=== PATIENT | male | born 1975 | race Caucasian/White ===

== ENCOUNTER 2016-07-30 21:35 | Emergency (ER) | payer OTHER ==
[~2016-07-30] VITALS: Ht 180.3 cm; Wt 70.8 kg
[~2016-07-30 21:35] MED LIST: BUPR8MIS SL; CLON0.5T3 PO; IBUP600T44 PO; [UNRECOGNIZED DRUG - OTHER]
[2016-07-30 21:48] VITALS: TEMP 36.8; Ht 180.3 cm; Wt 70.8 kg
[2016-07-30] MEDS ORDERED: BUSP15TA70 PO (22:16)
[2016-07-31] MEDS ORDERED: IBUPROFEN 600 MG TAB PO STA (00:12)
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
[2016-07-31] MEDS ORDERED: MoRPHine SULFATE 4 MG/ML 1 ML CARP\\VIAL IV STA ×2 (00:40→02:13)
[2016-07-31] MEDS ORDERED: ONDANSETRON INJ 2 MG/ML 2 ML VIAL IV STA (00:40)
[2016-07-31 01:00] LABS: ISTAT CREATININE 0.7 mg/dl (0.6-1.3); ISTAT IONIZED CALCIUM 1.19 mmol/l (1.12-1.32)
[2016-07-31] MEDS ORDERED: OPTIRAY 320 IV PRN (01:00)
[2016-07-31 02:29] VITALS: BP 124/98; PULSE 80; O2SAT 100
--- NOTE | 2016-07-31 06:04 | DIAGNOSTIC IMAGING REPORT ---
LEFT RIBS UNILATERAL WITH PA CHEST CLINICAL HISTORY: Left rib pain pain COMPARISON STUDY: None FINDINGS: Negative left ribs. Lungs are clear. No evidence pneumothorax. IMPRESSION: Negative study Electronically signed by: Edson Marquez M.D. 07/31/2016 6:02 AM Dictated Date/Time: 07/31/2016 6:00 AM
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
[2016-08-01] MEDS ORDERED: BUSP-8 PO (10:57)
[2016-08-01] MEDS ORDERED: CLON1TAB3 PO ×2 (10:57→11:22)
[2016-08-01] MEDS ORDERED: ZOLP10TA PO (10:58)
[2016-08-01] MEDS ORDERED: ACET-1256 PO (10:59)
[2016-08-01] MEDS ORDERED: IBUP-1050 PO (10:59)
[2016-08-01] MEDS ORDERED: BUSP15TA70 PO (11:22)
== END 2016-07-31 02:25 | disposition home or self-care (01) ==
LOC: C.EDB 21:37 → C.EDD 07-31 02:25
DX: S20.20XA Contusion of thorax, unspecified, initial encounter (principal); T14.8 Other injury of unspecified body region; Y04.0XXA Assault by unarmed brawl or fight, initial encounter

== ENCOUNTER 2016-08-01 10:14 | Emergency (ER) | payer OTHER ==
[~2016-08-01] VITALS: Ht 180.3 cm; Wt 71.9 kg
[~2016-08-01 10:14] MED LIST changes: +BUSP15TA70 PO; -IBUP600T44 PO; -[UNRECOGNIZED DRUG - OTHER]
[2016-08-01 10:26] VITALS: TEMP 37.1; Ht 180.3 cm; Wt 71.9 kg
[2016-08-01] MEDS ORDERED: CLONAZEPAM 1 MG TAB PO STA (10:47)
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
[2016-08-01] MEDS ORDERED: CLON1TAB3 PO ×2 (10:57→11:22)
[2016-08-01] MEDS ORDERED: BUSP-8 PO (10:57)
[2016-08-01] MEDS ORDERED: ZOLP10TA PO (10:58)
[2016-08-01] MEDS ORDERED: IBUP-1050 PO (10:59)
[2016-08-01] MEDS ORDERED: ACET-1256 PO (10:59)
[2016-08-01] MEDS ORDERED: CLONAZEPAM 0.5 MG TAB PO ONE (11:00)
[2016-08-01] MEDS ORDERED: BUSP15TA70 PO (11:22)
[2016-08-01 11:31] VITALS: BP 144/89; PULSE 88; O2SAT 99
== END 2016-08-01 11:30 | disposition home or self-care (01) ==
LOC: C.EDB 10:15 → C.EDD 11:30
DX: Z76.0 Encounter for issue of repeat prescription (principal); F41.9 Anxiety disorder, unspecified; Z79.899 Other long term (current) drug therapy

== ENCOUNTER 2021-06-16 16:58 | Inpatient (IN) ==
[2021-06-16] MEDS ORDERED: SODIUM CHLORIDE 0.9% 1000ML 1,000 ML IV ONE (17:42)
[2021-06-16] MEDS ORDERED: KETOROLAC TROMETHAMINE 15 MG/ML VIAL IV STA (17:42)
[2021-06-16] MEDS ORDERED: PROMETHAZINE 6.25 MG/50.25 ML BAG IV STA (17:42)
[2021-06-16] MEDS ORDERED: ONDANSETRON INJ 2 MG/ML 2 ML VIAL IV STA (17:42)
[2021-06-16] MEDS ORDERED: MoRPHine SULFATE 10 MG/ML CARP/VIAL IV STA (17:42)
--- NOTE | 2021-06-16 17:45 | Emergency Department Note ---
Impression & Plan Epigastric abdominal pain, Vomiting, Acute pancreatitis ED Provider Note NAME: CLAU JAMES AGE: 46 SEX: M : 1975 ARRIVES VIA: Walk-In INFORMANT: [Patient] ED PROVIDER(S): [Holden Frideman MD] CHIEF COMPLAINT: Abdominal pain HISTORY OF PRESENT ILLNESS: The patient is a 46-year-old male presents to the ER with severe upper abdominal pain that began last evening and then worsened today after eating breakfast. He has been vomiting. The pain is severe and radiates to the back. It seems bilateral. There has been no fever, no cough or congestion or shortness of breath. He has had no urinary complaints. No issues with diarrhea although, he has had some trouble with constipation as of late. The patient has never had pain like this before, he still has his gallbladder and appendix. REVIEW OF SYSTEMS: See HPI for pertinent positives and negatives. A total of ten systems were reviewed and were otherwise negative. PMHx/PSHx: See Below SOCIAL HISTORY: See Below. PHYSICAL EXAM: GENERAL: Patient is in moderate distress from pain. HEENT: No acute trauma, normocephalic atraumatic, mucous membranes moist, no nasal congestion, no scleral icterus. NECK: No stridor, no adenopathy, no meningismus, trachea is midline. LUNGS: Clear to auscultation bilaterally, no wheeze, no rhonchi, breath sounds equal. HEART: Without murmurs gallops or rubs, regular rate and rhythm. ABDOMEN: Soft, moderately tender in the upper abdomen bilaterally and somewhat in the left lower quadrant, bowel sounds positive but quite hypoactive, no hernias, no peritonitis. EXTREMITIES: No cyanosis or edema, full range of motion of all the joints without pain or difficulty, no signs for acute trauma. NEUROLOGIC: Oriented x 3, no acute motor or sensory deficits, no focal weakness. SKIN: No rash, no jaundice, no diaphoresis. DIFFERENTIAL DIAGNOSIS: Appendicitis, testicular torsion, diverticulitis, UTI, obstruction, mesenteric ischemia, aortic pathology, inflammatory bowel disease, renal colic, cardiac ischemia, PUD, pancreatitis, biliary pathology, hernia, volvulus, constipation, as well as other pathologies. EMERGENCY DEPARTMENT COURSE/PROCEDURES: ECG: Indication was abdominal pain. The ECG shows a normal sinus rhythm with some sinus arrhythmia. The rate is 74. There is no ST elevation, no PVCs. The QTc is 428. Continuous Cardiac Monitoring: An order was placed for continuous cardiac monitoring. The monitor shows a rate of 87 with normal sinus rhythm. MEDICAL DECISION MAKING: There is a moderate leukocytosis at 18,000, this could be consistent with infection or just his pain. There is a elevation to the hemoglobin at 18.3. There is a normal platelet count. No coagulopathy. No significant electrolyte abnormality or renal failure. There were a few subtle liver enzyme elevations. Lipase was quite elevated consistent with pancreatitis. ECG shows a normal sinus rhythm, no obvious ischemia. Cardiac enzyme testing x1 is not not consistent with acute cardiac injury. Covid testing is negative. Chest film does not show CHF, free air or mediastinal widening. Abdominal and pelvis CT is consistent with acute pancreatitis. On exam, the patient was tender in the upper abdomen. He appears uncomfortable The patient received IV saline, 1 L. He was given IV morphine, IV Toradol and IV Zofran, he received IV Phenergan. Additional IV morphine was ordered. The patient has acute pancreatitis. This explains his pain. The patient does admit to drinking alcohol fairly regularly and sometimes heavily. The alcohol is likely the cause of his pancreatitis. I spoke with the patient and case management. The on-call hospitalist was consulted. Past Med/Surg History Medical History Ankylosing spondylitis Anxiety Depression Social History Smoking Status: Never smoker Feels Safe at Home: Yes Allergies Allergies Allergy/AdvReac Type Severity Reaction Status Date / Time trazodone AdvReac Unknown prolonged Verified 06/16/21 17:32 erection Home Meds Home Medications Medication Instructions Recorded Confirmed buprenorphine HCl 8 mg sublingual 8 mg SUBLINGUAL BID 08/07/20 06/16/21 tablet clonazepam 0.5 mg tablet 0.5 mg PO HS 08/07/20 06/16/21 duloxetine 30 mg capsule,delayed 30 mg PO QAM 08/07/20 06/16/21 release mirtazapine 30 mg tablet 15 mg PO HS 06/16/21 06/16/21 testosterone cypionate 200 mg/mL 300 mg IM .EVERY 7 DAYS 06/16/21 06/16/21 intramuscular oil Results & Data (ED) Vital Signs Vital Signs - 24 hr 06/16/21 17:06 06/16/21 17:59 Temperature 36.9 C Temperature Source Temporal Artery Scan Pulse Rate 87 Pulse Rhythm Regular Pulse Strength Normal Respiratory Rate 18 Respiratory Effort / Characteristics Non-Labored Spontaneous Non-Labored Respiratory Depth Normal Shallow Respiratory Pattern Regular Regular Blood Pressure 152/100 H Blood Pressure Mean 117 Pulse Oximetry 99 Oxygen Delivery Method Room Air Room Air Sepsis Recent Fever Within 48 Hours No Sepsis New/Unexplained Change in Mental Status No Sepsis Action Taken by Nursing No Action Required Home Medications Current Medication List: was personally reviewed by me Laboratory Data Attestation: I reviewed the patient's lab results. Result diagrams: 06/16/21 17:45 06/16/21 17:45 Lab Results 06/16/21 06/16/21 06/16/21 Range/Units 17:45 17:45 17:45 WBC 18.91 H (4.8-10.8) K/uL RBC 5.68 (4.7-6.1) M/uL Hgb 18.3 H (14.0-18.0) g/dL Hct 50.4 (42-52) % MCV 88.7 (80-100) fL MCH 32.2 (25-34) pg MCHC 36.3 H (32-36) g/dL RDW Std Deviation 43.2 (36.4-46.3) fL RDW Coeff of Mark 13.2 (11.5-14.5) % Plt Count 188 (130-400) K/uL MPV 9.9 (7.4-10.4) fL Immature Gran % (Auto) 0.3 % Neut % (Auto) 89.2 % Lymph % (Auto) 4.4 % [place] % (Auto) 5.8 % Eos % (Auto) 0.2 % Baso % (Auto) 0.1 % Neut # (Auto) 16.87 H (1.4-6.5) K/uL Lymph # (Auto) 0.83 L (1.2-3.4) K/uL [place] # (Auto) 1.09 H (0.11-0.59) K/uL Eos # (Auto) 0.04 (0-0.5) K/uL Baso # (Auto) 0.02 (0-0.2) K/uL Immature Gran # (Auto) 0.06 H (0.00-0.02) K/uL PT 10.6 (9.0-12.0) Seconds INR 1.0 (0.9-1.1) APTT 25.8 (21.0-31.0) Seconds PTT Ratio 1.0 Sodium 137 (136-145) mmol/L Potassium 3.8 (3.5-5.1) mmol/L Chloride 100 (98-107) mmol/L Carbon Dioxide 26 (21-32) mmol/L Anion Gap 11 (3-11) BUN 13 (6-23) mg/dl Creatinine 1.06 (0.6-1.4) mg/dl Est Cr Clr Drug Dosing Not Reportable Est GFR ( Amer) 97.8 ml/min Est GFR (Non-Af Amer) 84.3 ml/min BUN/Creatinine Ratio 12.3 (10-20) Glucose 109 H (70-99(Fasting)) mg/dl Calcium 9.3 (8.5-10.1) mg/dl Total Bilirubin 1.6 H (0.2-1.0) mg/dl AST 40 H (13-39) U/L ALT 25 (7-52) U/L Alkaline Phosphatase 69 (34-104) U/L Troponin I < 0.03 (0-0.04) ng/ml Total Protein 7.5 (6.0-8.3) gm/dl Albumin 4.6 (3.4-5.0) gm/dl Globulin 2.9 (2.5-4.0) gm/dl Albumin/Globulin Ratio 1.6 (0.9-2) Lipase 1621 H (11-82) U/L SARS-CoV-2, RNA, NAAT (NEGATIVE) 06/16/21 Range/Units 18:14 WBC (4.8-10.8) K/uL RBC (4.7-6.1) M/uL Hgb (14.0-18.0) g/dL Hct (42-52) % MCV (80-100) fL MCH (25-34) pg MCHC (32-36) g/dL RDW Std Deviation (36.4-46.3) fL RDW Coeff of Mark (11.5-14.5) % Plt Count (130-400) K/uL MPV (7.4-10.4) fL Immature Gran % (Auto) % Neut % (Auto) % Lymph % (Auto) % [place] % (Auto) % Eos % (Auto) % Baso % (Auto) % Neut # (Auto) (1.4-6.5) K/uL Lymph # (Auto) (1.2-3.4) K/uL [place] # (Auto) (0.11-0.59) K/uL Eos # (Auto) (0-0.5) K/uL Baso # (Auto) (0-0.2) K/uL Immature Gran # (Auto) (0.00-0.02) K/uL PT (9.0-12.0) Seconds INR (0.9-1.1) APTT (21.0-31.0) Seconds PTT Ratio Sodium (136-145) mmol/L Potassium (3.5-5.1) mmol/L Chloride (98-107) mmol/L Carbon Dioxide (21-32) mmol/L Anion Gap (3-11) BUN (6-23) mg/dl Creatinine (0.6-1.4) mg/dl Est Cr Clr Drug Dosing Est GFR ( Amer) ml/min Est GFR (Non-Af Amer) ml/min BUN/Creatinine Ratio (10-20) Glucose (70-99(Fasting)) mg/dl Calcium (8.5-10.1) mg/dl Total Bilirubin (0.2-1.0) mg/dl AST (13-39) U/L ALT (7-52) U/L Alkaline Phosphatase (34-104) U/L Troponin I (0-0.04) ng/ml Total Protein (6.0-8.3) gm/dl Albumin (3.4-5.0) gm/dl Globulin (2.5-4.0) gm/dl Albumin/Globulin Ratio (0.9-2) Lipase (11-82) U/L SARS-CoV-2, RNA, NAAT NEGATIVE (NEGATIVE) Administered Medications Discontinued Medications Promethazine HCl (Phenergan) 6.25 mg in 50.25 mls @ 201 mls/hr IV NOW STA Stop: 06/16/21 17:56 Last Infusion: 06/16/21 18:51 Dose: 0 mls/hr Documented by: [id number] Admin: 06/16/21 18:05 Dose: 201 mls/hr Documented by: [id number] Sodium Chloride (Nss 1000ml) 1,000 mls @ 999 mls/hr IV .Q1H1M ONE Stop: 06/16/21 18:42 Last Infusion: 06/16/21 19:09 Dose: 0 mls/hr Documented by: [id number] Admin: 06/16/21 18:05 Dose: 999 mls/hr Documented by: [id number] Ioversol (Optiray 320 100ml) 95 ml IV ONCE ONE Stop: 06/16/21 18:28 Last Admin: 06/16/21 18:28 Dose: 95 ml Documented by: [id number] Ketorolac Tromethamine (Ketorolac Tromethamine 15 Mg/Ml Vial) 15 mg IV NOW STA Stop: 06/16/21 17:43 Last Admin: 06/16/21 18:05 Dose: 15 mg Documented by: [id number] Morphine Sulfate (Morphine Sulfate 10 Mg/Ml Carp/Vial) 6 mg IV NOW STA Stop: 06/16/21 17:43 Last Admin: 06/16/21 18:04 Dose: 6 mg Documented by: [id number] Ondansetron HCl (Ondansetron Inj 2 Mg/Ml 2 Ml Vial) 4 mg IV NOW STA Stop: 06/16/21 17:43 Last Admin: 06/16/21 18:05 Dose: 4 mg Documented by: [id number] Imaging Data Radiologist's Impression: Chest X-Ray 06/16/21 17:13 SINGLE VIEW CHEST CLINICAL HISTORY: Atypical chest pain. FINDINGS: 2 AP, portable, severe chest radiographs are compared to study dated 07/30/2016 and correlated with chest CT dated 07/31/2016. The examination is degraded by portable technique and patient rotation. The cardiomediastinal silhouette is unremarkable. The lungs and pleural spaces are clear. No pneumothorax is seen. The bony thorax is grossly intact. IMPRESSION: No active disease in the chest. ACT 112: Negative or not required by law. Electronically signed by: Holden Stein M.D. 06/16/2021 6:22 PM Abdomen/Pelvis CT 06/16/21 17:42 CT SCAN OF THE ABDOMEN AND PELVIS WITH IV CONTRAST CLINICAL HISTORY: Vomiting. Upper abdominal pain. COMPARISON STUDY: Abdominal CT dated 09/07/2009. TECHNIQUE: Following the IV administration of 95 cc of Optiray 320, CT scan of the abdomen and pelvis is performed from the lung bases to the proximal femora. Images are reviewed in the axial, sagittal, and coronal planes. IV contrast was administered without complication. A dose lowering technique was utilized adhering to the principles of ALARA. CT DOSE: 309.44 mGy.cm FINDINGS: Lung bases: The heart is normal in size and without pericardial effusion. The lung bases are clear. Liver: The contrast-enhanced liver is enlarged, measuring 20.7 cm in length. The liver is otherwise normal in contour and attenuation. There is no intrahepatic biliary ductal dilatation. The hepatic veins and portal veins are patent. Gallbladder: Unremarkable. Spleen: Normal in size and attenuation. Pancreas: Pancreas is enlarged and edematous with peripancreatic inflammation and fluid. The appearance is consistent with acute pancreatitis. The duct is normal in caliber. The gland enhances throughout. No organized peripancreatic fluid collection is identified. The splenic vein is patent. Adrenal glands: Unremarkable. Kidneys: The contrast enhanced kidneys are normal in size and without hydronephrosis. The kidneys enhance symmetrically. Abdominal vasculature: The abdominal aorta is normal in course and caliber. Bowel: There is moderate colonic fecal retention. No bowel obstruction is seen. The appendix is well-visualized and normal. Wall thickening and hyperemia of the duodenum is likely related to adjacent pancreatitis. Peritoneum: There is trace perihepatic ascites, as well as trace free fluid in the pelvis. No intraperitoneal free air is identified. There is a fat-containing umbilical hernia. Lymphadenopathy: None. Pelvic viscera: The bladder, prostate, and seminal vesicles are normal as visualized. Skeletal structures: No lytic or blastic lesions are seen. IMPRESSION: 1. Findings are consistent with acute pancreatitis. Correlate with clinical findings and serum amylase/lipase levels. 2. The gland enhances throughout and there is no organized peripancreatic fluid collection. 3. Hepatomegaly. 4. Small volume abdominopelvic ascites. 5. Wall thickening and edema of the duodenum is likely related to adjacent pancreatitis. 6. Additional findings as above. ACT 112: Negative or not required by law. Electronically signed by: Holden Stein M.D. 06/16/2021 7:11 PM Discharge Plan Visit Data Chief Complaint: Shortness of Breath/Dyspnea Stated Complaint: SOB, CHEST PAIN, ABDOM PAIN ED Provider: Holden Friedman Discharge Problem: Epigastric abdominal pain, Vomiting, Acute pancreatitis Patient Disposition: Admitted As Inpatient Condition: Fair Forms Stand Alone Forms: [facility] Prescriptions Prescriptions: No Action mirtazapine 30 mg tablet 15 mg PO HS RF: 0 testosterone cypionate 200 mg/mL oil 300 mg IM .EVERY 7 DAYS RF: 0 clonazepam 0.5 mg tablet 0.5 mg PO HS RF: 0 buprenorphine HCl 8 mg tablet, sublingual 8 mg SUBLINGUAL BID RF: 0 duloxetine 30 mg capsule,delayed release(DR/EC) 30 mg PO QAM RF: 0 Referrals Referrals: Alberto Lizama MD [Primary Care Provider] -
[2021-06-16 17:54] LABS: Basophils # (auto) 0.02 K/uL (0-0.2); Basophils % (auto) 0.1 %; Eosinophils # (auto) 0.04 K/uL (0-0.5); Eosinophils % (auto) 0.2 %; Hematocrit (blood only) 50.4 % (42-52); Hemoglobin 18.3 g/dL (14.0-18.0); Immature Granulocytes # (auto) 0.06 K/uL (0.00-0.02); Immature Granulocytes % (auto) 0.3 %; Lymphocytes # (auto) 0.83 K/uL (1.2-3.4); Lymphocytes % (auto) 4.4 %; Mean Corpuscular Hemoglobin 32.2 pg (25-34); Mean Corpuscular Hgb Conc 36.3 g/dL (32-36); Mean Corpuscular Volume 88.7 fL (80-100); Mean Platelet Volume 9.9 fL (7.4-10.4); Monocytes # (auto) 1.09 K/uL (0.11-0.59); Monocytes % (auto) 5.8 %; Neutrophils # (auto) 16.87 K/uL (1.4-6.5); Neutrophils % (auto) 89.2 %; Platelet Count 188 K/uL (130-400); RDW Coefficient of Variation 13.2 % (11.5-14.5); RDW Standard Deviation 43.2 fL (36.4-46.3); Red Blood Count 5.68 M/uL (4.7-6.1); White Blood Count 18.91 K/uL (4.8-10.8)
[2021-06-16 18:05] LABS: Partial Thromboplastin Time 25.8 Seconds (21.0-31.0); Prothrombin Time 10.6 Seconds (9.0-12.0)
[2021-06-16 18:13] LABS: Troponin I < 0.03 ng/ml (0-0.04)
[2021-06-16 18:17] LABS: Anion Gap 11 (3-11); BUN Creatinine Ratio 12.3 (10-20); Blood Urea Nitrogen 13 mg/dl (6-23); Calcium 9.3 mg/dl (8.5-10.1); Carbon Dioxide 26 mmol/L (21-32); Chloride 100 mmol/L (98-107); Est GFR (African American) 97.8 ml/min; Est GFR (Non-African American) 84.3 ml/min; Glucose 109 mg/dl (70-99(Fasting)); Potassium 3.8 mmol/L (3.5-5.1); Sodium 137 mmol/L (136-145)
--- NOTE | 2021-06-16 18:24 | XRay Report ---
SINGLE VIEW CHEST CLINICAL HISTORY: Atypical chest pain. FINDINGS: 2 AP, portable, severe chest radiographs are compared to study dated 07/30/2016 and correlat ed with chest CT dated 07/31/2016. The examination is degraded by portable technique and patient rotat ion. The cardiomediastinal silhouette is unremarkable. The lungs and pleural spaces are clear. No p neumothorax is seen. The bony thorax is grossly intact. IMPRESSION: No active disease in the chest. ACT 112: Negative or not required by law. Electronically signed by: Holden Stein M.D. 06/16/2021 6:22 PM
[2021-06-16] MEDS ORDERED: OPTIRAY 320 100ml IV ONE (18:27)
[2021-06-16 19:00] LABS: Alanine Aminotransferase 25 U/L (7-52); Albumin Globulin Ratio 1.6 (0.9-2); Albumin Level 4.6 gm/dl (3.4-5.0); Alkaline Phosphatase 69 U/L (34-104); Aspartate Aminotransferase 40 U/L (13-39); Bilirubin,Total 1.6 mg/dl (0.2-1.0); Globulin 2.9 gm/dl (2.5-4.0); Total Protein 7.5 gm/dl (6.0-8.3)
--- NOTE | 2021-06-16 19:13 | CT Scan Report ---
CT SCAN OF THE ABDOMEN AND PELVIS WITH IV CONTRAST CLINICAL HISTORY: Vomiting. Upper abdominal pain. COMPARISON STUDY: Abdominal CT dated 09/07/2009. TECHNIQUE: Following the IV administration of 95 cc of Optiray 320, CT scan of the abdomen and pelvi s is performed from the lung bases to the proximal femora. Images are reviewed in the axial, sagittal , and coronal planes. IV contrast was administered without complication. A dose lowering technique wa s utilized adhering to the principles of ALARA. CT DOSE: 309.44 mGy.cm FINDINGS: Lung bases: The heart is normal in size and without pericardial effusion. The lung bases are clear. Liver: The contrast-enhanced liver is enlarged, measuring 20.7 cm in length. The liver is otherwise n ormal in contour and attenuation. There is no intrahepatic biliary ductal dilatation. The hepatic vei ns and portal veins are patent. Gallbladder: Unremarkable. Spleen: Normal in size and attenuation. Pancreas: Pancreas is enlarged and edematous with peripancreatic inflammation and fluid. The appearan ce is consistent with acute pancreatitis. The duct is normal in caliber. The gland enhances throughou t. No organized peripancreatic fluid collection is identified. The splenic vein is patent. Adrenal glands: Unremarkable. Kidneys: The contrast enhanced kidneys are normal in size and without hydronephrosis. The kidneys enh ance symmetrically. Abdominal vasculature: The abdominal aorta is normal in course and caliber. Bowel: There is moderate colonic fecal retention. No bowel obstruction is seen. The appendix is well -visualized and normal. Wall thickening and hyperemia of the duodenum is likely related to adjacent pancreatitis. Peritoneum: There is trace perihepatic ascites, as well as trace free fluid in the pelvis. No intrape ritoneal free air is identified. There is a fat-containing umbilical hernia. Lymphadenopathy: None. Pelvic viscera: The bladder, prostate, and seminal vesicles are normal as visualized. Skeletal structures: No lytic or blastic lesions are seen. IMPRESSION: 1. Findings are consistent with acute pancreatitis. Correlate with clinical findings and serum amylas e/lipase levels. 2. The gland enhances throughout and there is no organized peripancreatic fluid collection. 3. Hepatomegaly. 4. Small volume abdominopelvic ascites. 5. Wall thickening and edema of the duodenum is likely related to adjacent pancreatitis. 6. Additional findings as above. ACT 112: Negative or not required by law. Electronically signed by: Holden Stein M.D. 06/16/2021 7:11 PM
[2021-06-16] MEDS: MoRPHine SULFATE 4 MG/ML 1 ML CARP\\VIAL IV PRN ×3 (20:00→22:45)
[2021-06-16] MEDS ORDERED: MULTI-VITAMIN INFUSION 10 ML, THIAMINE HCL 100 MG, FOLIC ACID 1 MG in SODIUM CHLORIDE 0... IV ONE (20:58)
[2021-06-16] MEDS ORDERED: oxyCODONE HCL IR 5 MG TAB (IMMEDIATE RELEASE) PO PRN (20:58)
--- NOTE | 2021-06-16 22:57 | History & Physical Report ---
Date of Service June 16, 2021 Assessment & Plan (1) Acute pancreatitis: Plan: Recurrent alcoholic pancreatitis anxiety/mood disorder, stable hx HLA-B27 spondyloarthropathy as per records/chronic pain on Suboxone GMF Bowel rest, analgesia, IVF GI consult Re: Pancreatitis AWSS, DT precautions DVT prophylaxis. Lovenox subcu Full code Text document was generated using [employer] voice recognition software. It may contain grammatical or spelling errors. Kindly contact undersigned for clarification of any documentation item in question. History of Present Illness Chief Complaint: Abdominal pain Primary Care Provider: Alberto Lizama MD History obtained from patient and records. Medical history significant for history alcoholic pancreatitis as per patient, GERD, anxiety/mood disorder, hx HLA-B27 spondyloarthropathy as per records, chronic pain on Suboxone. Last night, patient noted sharp upper abdominal pain after consuming a pizza. Pain radiating to the back causing him to be short of breath. No fever, no chills. Pain reminiscent of episode of alcoholic pancreatitis decades ago. Patient denies inordinate consumption of alcohol. Patient consulted ER for evaluation. Medical History as above Surgical History : Hernia repair, shoulder surgeries Family History : Breast cancer, heart disease, melanoma, rheumatoid arthritis Personal/Social history : Non-smoker, drinking can be heavy from time to time as per patient, paint work Allergies Allergy/AdvReac Type Severity Reaction Status Date / Time trazodone AdvReac Unknown prolonged Verified 06/16/21 17:32 erection Home Medications Medication Instructions Recorded Confirmed Type buprenorphine HCl 8 mg sublingual 8 mg SUBLINGUAL BID 08/07/20 06/16/21 History tablet clonazepam 0.5 mg tablet 0.5 mg PO HS 08/07/20 06/16/21 History duloxetine 30 mg capsule,delayed 30 mg PO QAM 08/07/20 06/16/21 History release mirtazapine 30 mg tablet 15 mg PO HS 06/16/21 06/16/21 History testosterone cypionate 200 mg/mL 300 mg IM .EVERY 7 DAYS 06/16/21 06/16/21 History intramuscular oil Past Med/Surg History Medical History Ankylosing spondylitis Anxiety Depression Social History Smoking Status: Never smoker Hx Alcohol Use: Yes Alcohol type: beer Hx Substance Use: No Preferred Language: Lao Communication Ability: Effective Railway Equipment Operator Required: No Beliefs That Will Affect Care: None Current Living Situation Comment: lives with daughter and dog Other Information That Helps Us Care for You: No Feels Safe at Home: Yes Safety Concerns: Feels Safe At This Time Assistive Devices: None Review of Systems Review of Systems: As per HPI, all 10 systems reviewed, all other ROS negative Physical Exam Physical Exam: GENERAL: uncomfortable, no respiratory distress SKIN: Normal color, warm HEENT: [place] palpebral conjunctivae, no ptosis, dry buccal mucosa NECK : Supple, no tenderness CHEST : CTA, no tenderness HEART : RRR, no obvious murmurs ABDOMEN: Some distention, epigastric tenderness EXTREMITIES : No LE swelling/tenderness, no other conspicuous deformities noted NEUROLOGIC : Coherent, no facial asymmetry, no other gross focality Results & Data Results & Data ([facility]) Vital Signs (Past 12 Hours) Vital Signs Temp Pulse Pulse Resp BP BP Pulse Ox 06/16/21 21:00 80 22 157/91 H 96 06/16/21 19:00 70 14 144/90 H 98 06/16/21 17:06 36.9 C 87 18 152/100 H 99 Laboratory Results Laboratory Results WBC 18.91 K/uL (4.8-10.8) H 06/16/21 17:45 RBC 5.68 M/uL (4.7-6.1) 06/16/21 17:45 Hgb 18.3 g/dL (14.0-18.0) H 06/16/21 17:45 Hct 50.4 % (42-52) 06/16/21 17:45 MCV 88.7 fL (80-100) 06/16/21 17:45 MCH 32.2 pg (25-34) 06/16/21 17:45 MCHC 36.3 g/dL (32-36) H 06/16/21 17:45 RDW Std Deviation 43.2 fL (36.4-46.3) 06/16/21 17:45 RDW Coeff of Mark 13.2 % (11.5-14.5) 06/16/21 17:45 Plt Count 188 K/uL (130-400) 06/16/21 17:45 MPV 9.9 fL (7.4-10.4) 06/16/21 17:45 Immature Gran % (Auto) 0.3 % 06/16/21 17:45 Neut % (Auto) 89.2 % 06/16/21 17:45 Lymph % (Auto) 4.4 % 06/16/21 17:45 [place] % (Auto) 5.8 % 06/16/21 17:45 Eos % (Auto) 0.2 % 06/16/21 17:45 Baso % (Auto) 0.1 % 06/16/21 17:45 Neut # (Auto) 16.87 K/uL (1.4-6.5) H 06/16/21 17:45 Lymph # (Auto) 0.83 K/uL (1.2-3.4) L 06/16/21 17:45 [place] # (Auto) 1.09 K/uL (0.11-0.59) H 06/16/21 17:45 Eos # (Auto) 0.04 K/uL (0-0.5) 06/16/21 17:45 Baso # (Auto) 0.02 K/uL (0-0.2) 06/16/21 17:45 Immature Gran # (Auto) 0.06 K/uL (0.00-0.02) H 06/16/21 17:45 PT 10.6 Seconds (9.0-12.0) 06/16/21 17:45 INR 1.0 (0.9-1.1) 06/16/21 17:45 APTT 25.8 Seconds (21.0-31.0) 06/16/21 17:45 PTT Ratio 1.0 06/16/21 17:45 Sodium 137 mmol/L (136-145) 06/16/21 17:45 Potassium 3.8 mmol/L (3.5-5.1) 06/16/21 17:45 Chloride 100 mmol/L (98-107) 06/16/21 17:45 Carbon Dioxide 26 mmol/L (21-32) 06/16/21 17:45 Anion Gap 11 (3-11) 06/16/21 17:45 BUN 13 mg/dl (6-23) 06/16/21 17:45 Creatinine 1.06 mg/dl (0.6-1.4) 06/16/21 17:45 Est Cr Clr Drug Dosing Not Reportable 06/16/21 17:45 Est GFR ( Amer) 97.8 ml/min 06/16/21 17:45 Est GFR (Non-Af Amer) 84.3 ml/min 06/16/21 17:45 BUN/Creatinine Ratio 12.3 (10-20) 06/16/21 17:45 Glucose 109 mg/dl (70-99(Fasting)) H 06/16/21 17:45 Calcium 9.3 mg/dl (8.5-10.1) 06/16/21 17:45 Total Bilirubin 1.6 mg/dl (0.2-1.0) H 06/16/21 17:45 AST 40 U/L (13-39) H 06/16/21 17:45 ALT 25 U/L (7-52) 06/16/21 17:45 Alkaline Phosphatase 69 U/L (34-104) 06/16/21 17:45 Troponin I < 0.03 ng/ml (0-0.04) 06/16/21 17:45 Total Protein 7.5 gm/dl (6.0-8.3) 06/16/21 17:45 Albumin 4.6 gm/dl (3.4-5.0) 06/16/21 17:45 Globulin 2.9 gm/dl (2.5-4.0) 06/16/21 17:45 Albumin/Globulin Ratio 1.6 (0.9-2) 06/16/21 17:45 Lipase 1621 U/L (11-82) H 06/16/21 17:45 SARS-CoV-2, RNA, NAAT NEGATIVE (NEGATIVE) 06/16/21 18:14 Impressions Chest X-Ray 06/16/21 17:13 SINGLE VIEW CHEST CLINICAL HISTORY: Atypical chest pain. FINDINGS: 2 AP, portable, severe chest radiographs are compared to study dated 07/30/2016 and correlated with chest CT dated 07/31/2016. The examination is degraded by portable technique and patient rotation. The cardiomediastinal silhouette is unremarkable. The lungs and pleural spaces are clear. No pneumothorax is seen. The bony thorax is grossly intact. IMPRESSION: No active disease in the chest. ACT 112: Negative or not required by law. Electronically signed by: Holden Stein M.D. 06/16/2021 6:22 PM Abdomen/Pelvis CT 06/16/21 17:42 CT SCAN OF THE ABDOMEN AND PELVIS WITH IV CONTRAST CLINICAL HISTORY: Vomiting. Upper abdominal pain. COMPARISON STUDY: Abdominal CT dated 09/07/2009. TECHNIQUE: Following the IV administration of 95 cc of Optiray 320, CT scan of the abdomen and pelvis is performed from the lung bases to the proximal femora. Images are reviewed in the axial, sagittal, and coronal planes. IV contrast was administered without complication. A dose lowering technique was utilized adhering to the principles of ALARA. CT DOSE: 309.44 mGy.cm FINDINGS: Lung bases: The heart is normal in size and without pericardial effusion. The lung bases are clear. Liver: The contrast-enhanced liver is enlarged, measuring 20.7 cm in length. The liver is otherwise normal in contour and attenuation. There is no intrahepatic biliary ductal dilatation. The hepatic veins and portal veins are patent. Gallbladder: Unremarkable. Spleen: Normal in size and attenuation. Pancreas: Pancreas is enlarged and edematous with peripancreatic inflammation and fluid. The appearance is consistent with acute pancreatitis. The duct is normal in caliber. The gland enhances throughout. No organized peripancreatic fluid collection is identified. The splenic vein is patent. Adrenal glands: Unremarkable. Kidneys: The contrast enhanced kidneys are normal in size and without hydronephrosis. The kidneys enhance symmetrically. Abdominal vasculature: The abdominal aorta is normal in course and caliber. Bowel: There is moderate colonic fecal retention. No bowel obstruction is seen. The appendix is well-visualized and normal. Wall thickening and hyperemia of the duodenum is likely related to adjacent pancreatitis. Peritoneum: There is trace perihepatic ascites, as well as trace free fluid in the pelvis. No intraperitoneal free air is identified. There is a fat-containing umbilical hernia. Lymphadenopathy: None. Pelvic viscera: The bladder, prostate, and seminal vesicles are normal as visualized. Skeletal structures: No lytic or blastic lesions are seen. IMPRESSION: 1. Findings are consistent with acute pancreatitis. Correlate with clinical findings and serum amylase/lipase levels. 2. The gland enhances throughout and there is no organized peripancreatic fluid collection. 3. Hepatomegaly. 4. Small volume abdominopelvic ascites. 5. Wall thickening and edema of the duodenum is likely related to adjacent pancreatitis. 6. Additional findings as above. ACT 112: Negative or not required by law. Electronically signed by: Holden Stein M.D. 06/16/2021 7:11 PM Diagnostic Findings Gallbladder ultrasound initial read: The pancreatic duct appears prominent at 3 mm. [place]all amount of fluid around the liver. Otherwise unremarkable right upper quadrant sonogram. No evidence of gallstones or bile duct dilatation. EKG as per my interpretation: Rate 75, NSR, normal axis, no ischemia (1) Acute pancreatitis Acute pancreatitis complication: no infection or necrosis Pancreatitis type: unspecified pancreatitis type Qualified Code(s): K85.90 - Acute pancreatitis without necrosis or infection, unspecified
[2021-06-16] MEDS ORDERED: LACTATED RINGER'S 1,000 ML IV ONE (23:30)
[2021-06-16] MEDS ORDERED: ATIVAN IV ALCOHOL WITHDRAWL IV PRN (23:56)
[2021-06-16] MEDS ORDERED: PROMETHAZINE HCL 12.5 MG in SODIUM CHLORIDE 0.9% 50 ML IV PRN (23:56)
[2021-06-16] MEDS ORDERED: LORazepam 1 MG/2 ML VIAL IV PRN (23:56)
[2021-06-16] MEDS ORDERED: LORazepam 2 MG/4 ML VIAL IV PRN (23:56)
[2021-06-16] MEDS ORDERED: LORazepam 3 MG/6 ML VIAL IV PRN (23:56)
[2021-06-17] MEDS ORDERED: clonazePAM 0.5 MG TAB PO ONE
[2021-06-17] MEDS: clonazePAM 0.5 MG TAB PO SCH ×2 (00:09→20:25)
[2021-06-17] MEDS: ACETAMINOPHEN 325 MG TAB PO PRN ×2 (00:12→05:55)
[2021-06-17] MEDS: MIRTAZAPINE TAB 15 MG TAB PO SCH ×2 (00:29→20:19)
[2021-06-17] MEDS: THIAMINE HCL 100 MG TAB PO SCH ×2 (00:29→07:57)
[2021-06-17] MEDS: FOLIC ACID 1 MG TAB PO SCH ×2 (00:29→07:57)
[2021-06-17] MEDS: KETOROLAC TROMETHAMINE 15 MG/ML VIAL IV PRN ×2 (00:32→07:51)
[2021-06-17] MEDS ORDERED: KETOROLAC TROMETHAMINE 15 MG/ML VIAL IV ONE (01:02)
[2021-06-17] MEDS: LACTATED RINGER'S 1,000 ML IV SCH ×4 (05:55→22:14)
--- NOTE | 2021-06-17 07:26 | Ultrasound Report ---
ABDOMINAL ULTRASOUND, RIGHT UPPER QUADRANT HISTORY: Upper abdominal pain. Vomiting.. COMPARISON: Abdomen and pelvis CT 06/16/2021. FINDINGS: Pancreas: The gland appears edematous and there is trace peripancreatic fluid consistent with the pat ient's known acute pancreatitis. The main pancreatic duct is at the upper limits of normal measuring 3 mm. Liver: Unremarkable. Trace perihepatic ascites. Gallbladder: No gallbladder wall thickening. No gallstones. CBD: 4 mm. Right kidney: No hydronephrosis. IMPRESSION: 1. Edematous pancreas consistent with the patient's known history of acute pancreatitis. 2. Trace perihepatic ascites. 3. Normal gallbladder. No gallstones. ACT 112: Negative or not required by law. Electronically signed by: Jeremie Owen M.D. 06/17/2021 7:25 AM
[2021-06-17] MEDS: MULTIVITAMIN TAB PO SCH (07:57)
[2021-06-17] MEDS: ENOXAPARIN INJ 40 MG/0.4 ML SYR SQ SCH (07:57)
[2021-06-17] MEDS: DULoxetine HCL 30 MG CAP PO SCH (07:57)
[2021-06-17] MEDS: buprenorphine HCL 8 MG SUBL SL SCH ×2 (08:05→19:07)
[2021-06-17 09:17] LABS: Albumin Level 3.6 gm/dl (3.4-5.0); BUN Creatinine Ratio 11.1 (10-20); Bilirubin Direct 0.3 mg/dl (0-0.2); Bilirubin,Total 1.8 mg/dl (0.2-1.0); Calcium 7.8 mg/dl (8.5-10.1); Chol HDL Ratio 3.2 (0-5); Creatinine Clr Calc Pharmacy 78.9 ml/min; Est GFR (African American) 79.3 ml/min; Est GFR (Non-African American) 68.4 ml/min; Potassium 3.7 mmol/L (3.5-5.1); Total Protein 5.9 gm/dl (6.0-8.3)
[2021-06-17] MEDS ORDERED: KETOROLAC 30 MG/ML VIAL IV ONE (09:22)
[2021-06-17 09:44] LABS: Lipase 2303 U/L (11-82)
[2021-06-17 09:56] LABS: Basophils # (auto) 0.02 K/uL (0-0.2); Basophils % (auto) 0.2 %; Eosinophils # (auto) 0.09 K/uL (0-0.5); Eosinophils % (auto) 0.7 %; Hematocrit (blood only) 43.6 % (42-52); Hemoglobin 15.1 g/dL (14.0-18.0); Immature Granulocytes # (auto) 0.02 K/uL (0.00-0.02); Immature Granulocytes % (auto) 0.2 %; Lymphocytes # (auto) 0.64 K/uL (1.2-3.4); Mean Corpuscular Hemoglobin 31.1 pg (25-34); Mean Corpuscular Hgb Conc 34.6 g/dL (32-36); Mean Corpuscular Volume 89.9 fL (80-100); Mean Platelet Volume 9.7 fL (7.4-10.4); Monocytes # (auto) 1.04 K/uL (0.11-0.59); Monocytes % (auto) 8.2 %; Neutrophils # (auto) 10.87 K/uL (1.4-6.5); Neutrophils % (auto) 85.7 %; Platelet Count 115 K/uL (130-400); RDW Coefficient of Variation 13.6 % (11.5-14.5); Red Blood Count 4.85 M/uL (4.7-6.1); White Blood Count 12.68 K/uL (4.8-10.8)
--- NOTE | 2021-06-17 10:46 | Gastrointestinal Consultation ---
Date of Consultation June 17, 2021 Assessment & Plan (1) Acute pancreatitis: Acute uncomplicated pancreatitis. Regarding the cause of the pancreatitis: His hx (about 12 drinks/wk) and labs (mildly elevated T Bili and AST, with normal ALT, Alk Phos) suggest alcoholic hepatitis. Triglycerides are low. Also considered is passage of gallbladder sludge. MRCP ordered - pending. Will consider OP EUS in approx 6 wks. Recommend complete, permanent ETOH abstention. Continue LR at 200/hr. Hb 18 yesterday ->15 today (So adequate hydration); Cr is borderline elevated at 1.26. Pt is tolerating clear liquids po w/o increase pain or nausea. He is very motivated for discharge as he is a single parent of a 6 yr old daughter. He has childcare worked out today, through audio video tech tomorrow - but would really like to be able to go home later today. This would be a bit early - but will talk about this after MRCP and seeing how he feels later today. Supervising Physician Co-Signing Physician Notes I saw and evaluated the patient. He presents with a history of pancreatitis thought to be related to alcohol use. The patient notes that his pain is somewhat better today. Of note he did have a slight increase in his ALT in addition to his bilirubin overnight. Imaging upon admission showed no evidence of cholelithiasis or choledocholithiasis. Physical examination No obvious distress No scleral icterus noted Mild epigastric tenderness Impression" patient admitted with abdominal discomfort thought to be related to the pancreatitis. Based on the patient's history we wonder about alcohol as the most likely etiology. Plan continue with IV hydration MRCP ordered If pain-free tomorrow would advance to a full liquid diet History of Present Illness Reason for Consultation: Pancreatitis Requesting Physician: Dr. Dickinson Attending Physician: Cain Murphy MD History of Present Illness Mr. Iban Cade is a 46 yr old male pt of Dr. Lizama with a hx of hypogonadism on testosterone injections, otherwise an unremarkable PMH/PSH who presented to the ED yesterday for upper abdomen pain. CT on arrival with acute, uncomplicated pancreatitis and Lipase>1000. T Bili (1.6) and AST (40) were mildly elevated. Triglycerides were low at 70. GB is present, w/o stones or sludge and there was no CBD or pancreatic duct dilation on imaging. At hime, he had nausea, chills/sweating, was pale but did not have yellow eyes, yellow skin, light bowel movements or dark urine. On exam today: he continues in pain, but much improved (still painful with moving in the bed and painful on palpation). Regarding cause of pancreatitis, he initially minimized his hx of ETOH intake but with further inquiring, he estimates that he drinks a total of about 12 drinks/week, mostly light beer, with some liquor around the holidays. He does not recall having prior episodes of similar pain. He takes multiple vitamins but no suspect supplements. He is on antidepressants: duloxetine, mirtazapine and is on buprenorphine. Allergies Allergy/AdvReac Type Severity Reaction Status Date / Time trazodone AdvReac Unknown prolonged Verified 06/16/21 17:32 erection Home Medications Medication Instructions Recorded Confirmed Type buprenorphine HCl 8 mg sublingual 8 mg SUBLINGUAL BID 08/07/20 06/16/21 History tablet clonazepam 0.5 mg tablet 0.5 mg PO HS 08/07/20 06/16/21 History duloxetine 30 mg capsule,delayed 30 mg PO QAM 08/07/20 06/16/21 History release mirtazapine 30 mg tablet 15 mg PO HS 06/16/21 06/16/21 History testosterone cypionate 200 mg/mL 300 mg IM .EVERY 7 DAYS 06/16/21 06/16/21 History intramuscular oil Patient History Medical History Ankylosing spondylitis Anxiety Depression Social History Smoking Status: Never smoker Hx Alcohol Use: Yes Alcohol type: beer Hx Substance Use: No Preferred Language: Russian Communication Ability: Effective Replenishment Specialist Required: No Beliefs That Will Affect Care: None Current Living Situation Comment: lives with daughter and dog Other Information That Helps Us Care for You: No Feels Safe at Home: Yes Safety Concerns: Feels Safe At This Time Assistive Devices: None Review of Systems Review of Systems: ROS: Gen: Denies weakness, fevers, weight loss Eyes: No eye redness, or pain, no recent vision changes Resp: No SOB, no cough Cardio: No palpitations/irregular beats, no chest pain GI: Per HPI, otherwise (-) : Denies pain on urination Skin: No jaundice, itching or new rashes Physical Exam Constitutional: well developed, + thin and cooperative Eyes: PERRL, conjunctivae normal, anicteric sclerae ENMT: external ear and nose normal, oropharynx normal Neck: trachea midline, no thyromegaly Respiratory: normal respiratory effort, lungs clear to auscultation Cardiovascular: RRR, no murmur, no edema Gastrointestinal (Abdomen): Inspection/Auscultation: abdomen normal to inspe ction and normal bowel sounds; abdomen not distended and no abdominal edema Percussion/Palpation: + abdomen tender (upper abd. No signs of acute abdomen.), + guarding (some guarding) and abdomen soft; abdomen not rigid Skin: no rashes, warm and dry normal turgor Neurologic: PERRL, EOMI, accommodation nl, no face palsy, no dysarthria awake; not confused Psychiatric: A+Ox3, euthymic affect Lymphatic: no cervical or axillary lymphadenopathy Results & Data ([facility]) Vital Signs (Past 12 Hours) Vital Signs Temp Pulse Pulse Resp BP BP Pulse Ox 06/17/21 07:47 36.5 C 77 18 121/70 97 06/16/21 23:56 37.1 C 69 18 125/65 96 06/16/21 23:24 80 18 153/89 H 97 06/16/21 23:00 80 18 151/90 H 97 Laboratory Results WBC 18, Hb 18, Hct 50, Plts 189, PT 10, NR 1, Na 137, K 3.8, Cl 100, CO2 26, BUN 13, Cr 1.06, glucose 109 T Bili 1.6, AST 40, ALT 24, Alk Post 69 Diagnostic Findings CTAP w IV 06/16/21: 1. Findings are consistent with acute pancreatitis. Correlate with clinical findings and serum amylase/lipase levels. 2. The gland enhances throughout and there is no organized peripancreatic fluid collection. 3. Hepatomegaly. 4. Small volume abdominopelvic ascites. 5. Wall thickening and edema of the duodenum is likely related to adjacent pancreatitis. GB US 06/16/21: 1. Edematous pancreas consistent with the patient's known history of acute pancreatitis. 2. Trace perihepatic ascites. 3. Normal gallbladder. No gallstones. CXR 06/16/21: No active disease in the chest. (1) Acute pancreatitis Acute pancreatitis complication: no infection or necrosis Pancreatitis type: unspecified pancreatitis type Qualified Code(s): K85.90 - Acute pancreatitis without necrosis or infection, unspecified
--- NOTE | 2021-06-17 11:23 | Electrocardiogram Report ---
Test Reason : Blood Pressure : / mmHG Vent. Rate : 074 BPM Atrial Rate : 074 BPM P-R Int : 148 ms QRS Dur : 096 ms QT Int : 386 ms P-R-T Axes : 074 063 056 degrees QTc Int : 428 ms Normal sinus rhythm with sinus arrhythmia Early repolarization Otherwise Normal ECG When compared with ECG of 29-MAR-2014 15:50, No significant change was found Confirmed by Silviano Coles ([id number]) on 06/17/2021 11:23:23 AM Referred By: REFERRED SELF Confirmed By:Silviano Coles
[2021-06-17] MEDS: ACETAMINOPHEN 1,000 MG/100 ML VIAL IV SCH ×2 (12:26→20:23)
--- NOTE | 2021-06-17 13:23 | Hospitalist Progress Note ---
Date of Service June 17, 2021 Assessment & Plan (1) Acute pancreatitis: Plan: Recurrent alcoholic pancreatitis -- Lipase trending down from 2,000 to 1,600 still having epigastric pain -- MRCP ordered per GI -- continue clear liquids, IV LR, pain control -- no overt signs of alcohol withdrawal anxiety/mood disorder, stable hx HLA-B27 spondyloarthropathy as per records/chronic pain on Suboxone DVT prophylaxis. Lovenox subcu Full code Admission and Anticipated Discharge Date Admission Date: June 16, 2021 Subjective ff up for acute pancreatitis, etc seen resting in bed, not in distress reports persistent of epigastric pain- radiating to the back Toradol relieving the pain mild nausea- resolved no chest pain, dyspnea, palpitations, dizziness no BM since last Tuesday no other symptoms Review of Systems Review of Systems: all noted and negative except for above Physical Exam Physical Exam: General- oriented x 3, not in distress, speaks in sentences with no effort or accessory muscle use Head- atraumatic Eyes- PERRL, EOMI, anicteric ENT- oropharynx clear Neck- supple, no JVD, no adenopathy, no thyromegaly; carotids +2/2, no bruits appreciated Lungs- clear to auscultation bilaterally, no rales/wheezes Heart- normal rate, regular rhythm; no murmur, no gallop, no rub appreciated Abdomen- normal bowel sounds, nondistended, soft, (+) mild epigastric tenderness, no masses or hepatosplenomegaly Extremities- no pretibial edema, no calf tenderness; peripheral pulses intact Neuro- alert, oriented x 3; CN 2-12 grossly intact; motor 5/5 bilaterally;sensation 100% on all extremities; no other gross focal neurologic deficits Skin- warm & dry Results & Data Results & Data ([facility]) Vital Signs (Past 12 Hours) Vital Signs Temp Pulse Resp BP Pulse Ox 06/17/21 07:47 36.5 C 77 18 121/70 97 all noted and reviewed including below (1) Acute pancreatitis Acute pancreatitis complication: no infection or necrosis Pancreatitis type: unspecified pancreatitis type Qualified Code(s): K85.90 - Acute pancreatitis without necrosis or infection, unspecified
[2021-06-17] MEDS ORDERED: POLYETHYLENE (MIRALAX) 17 GM PACK PO ONE (13:30)
--- NOTE | 2021-06-17 14:31 | Magnetic Resonance Report ---
MR MRCP CLINICAL HISTORY: eval for cbd stones . History of acute pancreatitis TECHNIQUE: Multiplanar multisequence MR images were obtained of the abdomen, followed by reconstruct ion of MRCP imaging. COMPARISON: CT of the abdomen and pelvis from 06/16/2021 gallbladder ultrasound from 06/16/2021 FINDINGS: There is again noted to be mild abdominal ascites. Liver: There is homogeneous signal intensity seen within the liver. No mass lesions are seen. There i s no evidence for intrahepatic or duct dilatation. Gallbladder: The gallbladder is distended with no intraluminal calculi. There is no evidence for wall thickening or pericholecystic edema. Spleen: There is homogeneous signal throughout the splenic parenchyma. No mass lesions are seen. Pancreas: There is again evidence for diffuse edema of the pancreas representing the presence of acut e pancreatitis. Peripancreatic fluid is present with no evidence for pseudocyst formation. There is n o evidence for a mass lesion. Kidneys: There is homogeneous signal throughout the renal parenchyma bilaterally. Adrenal glands: There is homogeneous signal demonstrated with no gross mass seen. Abdominal cavity: There is no gross bowel loop dilatation. The aorta is of normal caliber. The visualized osseous structures, demonstrate no evidence of abnormal signal intensity. MRCP: The common bile duct is normal in course and caliber. There is no evidence for dilatation. Th ere is no intraluminal filling defects or evidence for choledocholithiasis. There is no intrahepatic or duct dilatation. The pancreatic duct is normal in course and caliber. IMPRESSION: 1. Normal common bile duct, intrahepatic biliary duct radicles and pancreatic duct. No evidence for c holedocholithiasis. 2. Acute pancreatitis with peripancreatic fluid and mild abdominal ascites. 3. Distention of the gallbladder. ACT 112: Negative or not required by law. Electronically signed by: Zak Amaro M.D. 06/17/2021 2:29 PM
[2021-06-17] MEDS: KETOROLAC 30 MG/ML VIAL IV PRN ×2 (16:06→22:11)
[2021-06-17] MEDS ORDERED: Nursing to Pharmacy Communication SCH (19:15)
[2021-06-17] MEDS: MAGNESIUM HYDROXIDE SUSP 30 ML UDC PO PRN (20:25)
[2021-06-18] MEDS: LACTATED RINGER'S 1,000 ML IV SCH ×5 (03:05→22:48)
[2021-06-18] MEDS: ACETAMINOPHEN 1,000 MG/100 ML VIAL IV SCH ×3 (03:40→20:11)
[2021-06-18] MEDS: KETOROLAC 30 MG/ML VIAL IV PRN ×4 (03:40→22:46)
[2021-06-18 06:21] LABS: Basophils # (auto) 0.02 K/uL (0-0.2); Basophils % (auto) 0.1 %; Eosinophils # (auto) 0.52 K/uL (0-0.5); Eosinophils % (auto) 3.7 %; Hematocrit (blood only) 44.4 % (42-52); Hemoglobin 15.1 g/dL (14.0-18.0); Immature Granulocytes # (auto) 0.03 K/uL (0.00-0.02); Immature Granulocytes % (auto) 0.2 %; Lymphocytes % (auto) 5.7 %; Mean Corpuscular Hemoglobin 31.1 pg (25-34); Mean Corpuscular Volume 91.4 fL (80-100); Mean Platelet Volume 9.6 fL (7.4-10.4); Monocytes # (auto) 1.17 K/uL (0.11-0.59); Monocytes % (auto) 8.3 %; Neutrophils # (auto) 11.54 K/uL (1.4-6.5); Platelet Count 100 K/uL (130-400); RDW Standard Deviation 47.3 fL (36.4-46.3); Red Blood Count 4.86 M/uL (4.7-6.1); White Blood Count 14.08 K/uL (4.8-10.8)
[2021-06-18 07:20] LABS: Albumin Level 3.2 gm/dl (3.4-5.0); BUN Creatinine Ratio 6.6 (10-20); Bilirubin Direct 0.2 mg/dl (0-0.2); Calcium 7.8 mg/dl (8.5-10.1); Creatinine Clr Calc Pharmacy 93.7 ml/min; Est GFR (African American) 97.8 ml/min; Est GFR (Non-African American) 84.3 ml/min; Potassium 4.3 mmol/L (3.5-5.1); Total Protein 5.8 gm/dl (6.0-8.3)
[2021-06-18] MEDS: MAGNESIUM HYDROXIDE SUSP 30 ML UDC PO PRN ×3 (08:09→22:53)
[2021-06-18] MEDS: POLYETHYLENE (MIRALAX) 17 GM PACK PO SCH (09:15)
[2021-06-18] MEDS: FOLIC ACID 1 MG TAB PO SCH (09:15)
[2021-06-18] MEDS: ENOXAPARIN INJ 40 MG/0.4 ML SYR SQ SCH (09:16)
[2021-06-18] MEDS: buprenorphine HCL 8 MG SUBL SL SCH ×2 (09:16→16:03)
[2021-06-18] MEDS: THIAMINE HCL 100 MG TAB PO SCH (09:16)
[2021-06-18] MEDS: DULoxetine HCL 30 MG CAP PO SCH (09:16)
[2021-06-18] MEDS: MULTIVITAMIN TAB PO SCH (09:16)
[2021-06-18] MEDS ORDERED: LACTATED RINGER'S 500 ML IV ONE (09:29)
[2021-06-18] MEDS ORDERED: bisacodyL 10 MG SUPP PR STA (09:30)
[2021-06-18] MEDS ORDERED: METOCLOPRAMIDE HCL 10 MG TABLET PO ONE (09:45)
--- NOTE | 2021-06-18 09:45 | Gastroenterology Progress Note ---
Date of Service June 18, 2021 Assessment & Plan (1) Acute pancreatitis: Plan: Acute uncomplicated pancreatitis. Likely ETOH pancreatitis. OP EUS in approx 6 wks. Recommend complete, permanent ETOH abstention. IV fluid had been stopped a few hrs ago and he feels thirsty. Will restart with a 500cc bolus then 250cc/hr. For constipation/abd distention: Dulcolax supp x 1, metoclopramide 10mg x 1. Does not seem well enough this morning to advance diet, so will stay with clear liquids for now - may advance this afternoon if improves. Admission and Anticipated Discharge Date Admission Date: June 16, 2021 Supervising Physician Co-Signing Physician Notes I saw and evaluated the patient. He had presented with calm patient is related to pancreatitis and seems to be improving today. The patient did have an MRCP which showed no evidence of choledocholithiasis. Liquid diet today Consider discharge tomorrow if patient doing well Outpatient endoscopic ultrasound in 6 to 8 weeks Please call with any questions or concerns Subjective 46 male, presented on 06/[address] with acute uncomplicated pancreatitis. Lipase > 2000 -> 1048 today. Still with epigastric pain though significantly improved. Today abd bloating, feels constipated, not yet passing gas, 4 days since most recent BM. No Vomiting. Tolerating clear liquids po w/o increased pain or nausea. Feels "hot," but no measured fever. Review of Systems Review of Systems: ROS: Gen: + hot/chills, No fevers, no weight loss Eyes: No eye redness, or pain, no recent vision changes Resp: No SOB, no cough Cardio: No palpitations/irregular beats, no chest pain GI: Per HPI, otherwise (-) : Denies pain on urination Skin: No jaundice, itching or new rashes Physical Exam Constitutional: well developed, + thin and cooperative Eyes: PERRL, conjunctivae normal, anicteric sclerae ENMT: external ear and nose normal, oropharynx normal Neck: trachea midline, no thyromegaly Respiratory: normal respiratory effort, lungs clear to auscultation Cardiovascular: RRR, no murmur, no edema Gastrointestinal (Abdomen): Inspection/Auscultation: abdomen normal to inspection and + hypoactive bowel sounds; abdomen not distended and no abdominal edema Percussion/Palpation: + abdomen tender (upper abd. No signs of acute abdomen.), + guarding (some guarding) and abdomen soft; abdomen not rigid Skin: no rashes, warm and dry normal turgor Neurologic: PERRL, EOMI, accommodation nl, no face palsy, no dysarthria awake; not confused Psychiatric: A+Ox3, euthymic affect Lymphatic: no cervical or axillary lymphadenopathy Results & Data ([facility]) Vital Signs (Past 12 Hours) Vital Signs Temp Pulse Resp BP Pulse Ox 06/18/21 06:27 36.5 C 93 H 18 178/82 H 94 06/17/21 22:32 37.3 C 94 H 18 142/69 H 93 Laboratory Results WBC 14, Hb 15.1, Hct 44, Plats 100, Na 137 K 4.3, Cl 1004, CO2 25, BUN 26, Cr 0.8, glucose 97. Diagnostic Findings MRCP 06/16/21: 1. Normal common bile duct, intrahepatic biliary duct radicles and pancreatic duct. No evidence for choledocholithiasis. 2. Acute pancreatitis with peripancreatic fluid and mild abdominal ascites. 3. Distention of the gallbladder. GB US 06/16/21: 1. Edematous pancreas consistent with the patient's known history of acute pancreatitis. 2. Trace perihepatic ascites. 3. Normal gallbladder. No gallstones. CTAP w IV contrast 06/16/21: 1. Findings are consistent with acute pancreatitis. Correlate with clinical findings and serum amylase/lipase lvels. 2. The gland enhances throughout and there is no organized peripancreatic fluid collection. 3. Hepatomegaly. 4. Small volume abdominopelvic ascites. 5. Wall thickening and edema of the duodenum is likely related to adjacent pancreatitis. 6. Additional findings as above. (1) Acute pancreatitis Acute pancreatitis complication: no infection or necrosis Pancreatitis type: unspecified pancreatitis type Qualified Code(s): K85.90 - Acute pancreatitis without necrosis or infection, unspecified
--- NOTE | 2021-06-18 11:08 | Hospitalist Progress Note ---
Date of Service June 18, 2021 Assessment & Plan (1) Acute pancreatitis: Plan: Recurrent alcoholic pancreatitis Lipase trending down from 2,000 -> 1,600 -> 1,048 MRCP with normal common bile duct, intrahepatic biliary duct radicles and pancreatic duct. No evidence for choledocholithiasis. Acute pancreatitis with peripancreatic fluid and mild abdominal ascites No overt signs of alcohol withdrawal Recommend complete, permanent ETOH abstention Continue clear liquids this AM, GI may advance this afternoon if improves IV LR, pain control, Dulcolax supp x 1 for constipation OP EUS in approx 6 wks Anxiety/mood disorder Stable. Continue duloxetine, clonazepam HS Hx HLA-B27 spondyloarthropathy as per records Chronic pain Continue Suboxone DVT prophylaxis: Continue SQ Lovenox Full code Patient seen in collaboration with Dr. Murphy. Please see addendum. Admission and Anticipated Discharge Date Admission Date: June 16, 2021 Supervising Physician Co-Signing Physician Notes Attending Addendum: care coordinated with CELESTE Ortega please refer to her notes for full details, I agree with her notes patient seen and examined, records reviewed by myself as well on exam, patient seen resting in bed, not in distress epigastric pain improving (+) BM this morning- soft no other symptoms VS noted and reviewed oriented x 3, not in distress, speaks in sentences with no effort nor accessory muscle use normal rate, regular rhythm, no murmurs clear breath sounds bilaterally non distended, soft, (+) mild epigastric tenderness no bipedal edema, erythema, warmth no neuro deficits WBC 14 Hg 15 Crea 1.06 ASSESSMENT AND PLAN ACUTE PANCREATITIS, LIKELY ETOH RELATED MRCP unrevealing pain improving continue IV LR advance diet as tolerated discussed with GI outpatient EUS other diagnoses and plan of care as per CELESTE Ortega's notes Cain Murphy MD Subjective Seen and examined in 375-1 for pancreatitis follow up. Still experiencing abdominal pain today, but it is migrated to the lower abdomen. No longer having epigastric pain. Intermittent nausea but no vomiting. Feels bloated and constipated-4 days since most recent BM. Tolerating clear liquids. Feels hot but no recorded fever. No chills, chest pain, shortness of breath, vomiting, abdominal pain, dysuria or diarrhea. Review of Systems Review of Systems: all noted and negative except for above Physical Exam Physical Exam: Gen: WD/WN, NAD, sitting at side of bed, appears uncomfortable, A&Ox3 HEENT: Normocephalic, atraumatic, conjunctivae moist, sclerae anicteric, mucous membranes moist Lung: Clear to Auscultation bilaterally, no wheezes/rales/rhonchi Heart: Regular rate, regular rhythm, no murmurs, rubs, or gallops Abdomen: Soft, TTP of lower abdomen L>R, epigastric pain improved. +BS hypoactive Extremities: no edema Skin: Warm, no rash Results & Data Results & Data ([facility]) Vital Signs (Past 12 Hours) Vital Signs Temp Pulse Resp BP Pulse Ox 06/18/21 06:27 36.5 C 93 H 18 178/82 H 94 Laboratory Results Short CBC 06/18/21 Range/Units 05:57 WBC 14.08 H (4.8-10.8) K/uL Hgb 15.1 (14.0-18.0) g/dL Hct 44.4 (42-52) % Plt Count 100 L (130-400) K/uL BMP 06/18/21 05:57 Sodium 137 Potassium 4.3 Chloride 104 Carbon Dioxide 29 BUN 7 Creatinine 1.06 Glucose 97 Calcium 7.8 L Liver Function 06/18/21 Range/Units 05:57 Total Bilirubin 1.0 D (0.2-1.0) mg/dl Direct Bilirubin 0.2 (0-0.2) mg/dl AST 27 (13-39) U/L ALT 13 (7-52) U/L Alkaline Phosphatase 42 (34-104) U/L Albumin 3.2 L (3.4-5.0) gm/dl Diagnostic Findings Chest X-Ray 06/16/21 17:13 SINGLE VIEW CHEST CLINICAL HISTORY: Atypical chest pain. FINDINGS: 2 AP, portable, severe chest radiographs are compared to study dated 07/30/2016 and correlated with chest CT dated 07/31/2016. The examination is degraded by portable technique and patient rotation. The cardiomediastinal silhouette is unremarkable. The lungs and pleural spaces are clear. No pneumothorax is seen. The bony thorax is grossly intact. IMPRESSION: No active disease in the chest. ACT 112: Negative or not required by law. Electronically signed by: Holden Stein M.D. 06/16/2021 6:22 PM Abdomen/Pelvis CT 06/16/21 17:42 CT SCAN OF THE ABDOMEN AND PELVIS WITH IV CONTRAST CLINICAL HISTORY: Vomiting. Upper abdominal pain. COMPARISON STUDY: Abdominal CT dated 09/07/2009. TECHNIQUE: Following the IV administration of 95 cc of Optiray 320, CT scan of the abdomen and pelvis is performed from the lung bases to the proximal femora. Images are reviewed in the axial, sagittal, and coronal planes. IV contrast was administered without complication. A dose lowering technique was utilized adhering to the principles of ALARA. CT DOSE: 309.44 mGy.cm FINDINGS: Lung bases: The heart is normal in size and without pericardial effusion. The lung bases are clear. Liver: The contrast-enhanced liver is enlarged, measuring 20.7 cm in length. The liver is otherwise normal in contour and attenuation. There is no intrahepatic biliary ductal dilatation. The hepatic veins and portal veins are patent. Gallbladder: Unremarkable. Spleen: Normal in size and attenuation. Pancreas: Pancreas is enlarged and edematous with peripancreatic inflammation and fluid. The appearance is consistent with acute pancreatitis. The duct is normal in caliber. The gland enhances throughout. No organized peripancreatic fluid collection is identified. The splenic vein is patent. Adrenal glands: Unremarkable. Kidneys: The contrast enhanced kidneys are normal in size and without hydronephrosis. The kidneys enhance symmetrically. Abdominal vasculature: The abdominal aorta is normal in course and caliber. Bowel: There is moderate colonic fecal retention. No bowel obstruction is seen. The appendix is well-visualized and normal. Wall thickening and hyperemia of the duodenum is likely related to adjacent pancreatitis. Peritoneum: There is trace perihepatic ascites, as well as trace free fluid in the pelvis. No intraperitoneal free air is identified. There is a fat-containing umbilical hernia. Lymphadenopathy: None. Pelvic viscera: The bladder, prostate, and seminal vesicles are normal as visualized. Skeletal structures: No lytic or blastic lesions are seen. IMPRESSION: 1. Findings are consistent with acute pancreatitis. Correlate with clinical findings and serum amylase/lipase levels. 2. The gland enhances throughout and there is no organized peripancreatic fluid collection. 3. Hepatomegaly. 4. Small volume abdominopelvic ascites. 5. Wall thickening and edema of the duodenum is likely related to adjacent pancreatitis. 6. Additional findings as above. ACT 112: Negative or not required by law. Electronically signed by: Holden Stein M.D. 06/16/2021 7:11 PM Gallbladder Ultrasound 06/16/21 22:57 ABDOMINAL ULTRASOUND, RIGHT UPPER QUADRANT HISTORY: Upper abdominal pain. Vomiting.. COMPARISON: Abdomen and pelvis CT 06/16/2021. FINDINGS: Pancreas: The gland appears edematous and there is trace peripancreatic fluid consistent with the patient's known acute pancreatitis. The main pancreatic duct is at the upper limits of normal measuring 3 mm. Liver: Unremarkable. Trace perihepatic ascites. Gallbladder: No gallbladder wall thickening. No gallstones. CBD: 4 mm. Right kidney: No hydronephrosis. IMPRESSION: 1. Edematous pancreas consistent with the patient's known history of acute pancreatitis. 2. Trace perihepatic ascites. 3. Normal gallbladder. No gallstones. ACT 112: Negative or not required by law. Electronically signed by: Jeremie Owen M.D. 06/17/2021 7:25 AM Cholangiopancreatography MRI 06/17/21 08:32 MR MRCP CLINICAL HISTORY: eval for cbd stones . History of acute pancreatitis TECHNIQUE: Multiplanar multisequence MR images were obtained of the abdomen, followed by reconstruction of MRCP imaging. COMPARISON: CT of the abdomen and pelvis from 06/16/2021 gallbladder ultrasound from 06/16/2021 FINDINGS: There is again noted to be mild abdominal ascites. Liver: There is homogeneous signal intensity seen within the liver. No mass lesions are seen. There is no evidence for intrahepatic or duct dilatation. Gallbladder: The gallbladder is distended with no intraluminal calculi. There is no evidence for wall thickening or pericholecystic edema. Spleen: There is homogeneous signal throughout the splenic parenchyma. No mass lesions are seen. Pancreas: There is again evidence for diffuse edema of the pancreas representing the presence of acute pancreatitis. Peripancreatic fluid is present with no evidence for pseudocyst formation. There is no evidence for a mass lesion. Kidneys: There is homogeneous signal throughout the renal parenchyma bilaterally. Adrenal glands: There is homogeneous signal demonstrated with no gross mass seen. Abdominal cavity: There is no gross bowel loop dilatation. The aorta is of normal caliber. The visualized osseous structures, demonstrate no evidence of abnormal signal intensity. MRCP: The common bile duct is normal in course and caliber. There is no evidence for dilatation. There is no intraluminal filling defects or evidence for choledocholithiasis. There is no intrahepatic or duct dilatation. The pancreatic duct is normal in course and caliber. IMPRESSION: 1. Normal common bile duct, intrahepatic biliary duct radicles and pancreatic duct. No evidence for choledocholithiasis. 2. Acute pancreatitis with peripancreatic fluid and mild abdominal ascites. 3. Distention of the gallbladder. ACT 112: Negative or not required by law. Electronically signed by: Zak Amaro M.D. 06/17/2021 2:29 PM (1) Acute pancreatitis Acute pancreatitis complication: no infection or necrosis Pancreatitis type: unspecified pancreatitis type Qualified Code(s): K85.90 - Acute pancreatitis without necrosis or infection, unspecified
[2021-06-18] MEDS: MIRTAZAPINE TAB 15 MG TAB PO SCH (20:12)
[2021-06-18] MEDS: clonazePAM 0.5 MG TAB PO SCH (20:15)
[2021-06-19] MEDS: LACTATED RINGER'S 1,000 ML IV SCH ×3 (02:39→10:20)
[2021-06-19 02:53] LABS: Appearance Urine Clear (Clear); Bilirubin Urine Negative (Negative); Blood Urine Negative (Negative); Color Urine Yellow; Glucose Urine UA Negative (Negative); Ketones Urine Negative (Negative); Leukocyte Esterase Urine Negative (Negative); Nitrite Urine Negative (Negative); Protein Urine Negative (Negative); Specific Gravity Urine 1.008 (1.000-1.030); Urobilinogen Urine Negative (Negative); pH Urine 8.5 (4.5-7.5)
[2021-06-19] MEDS: KETOROLAC 30 MG/ML VIAL IV PRN ×2 (05:17→15:13)
[2021-06-19] MEDS: ACETAMINOPHEN 1,000 MG/100 ML VIAL IV SCH ×2 (05:18→12:36)
[2021-06-19 06:30] LABS: Basophils # (auto) 0.02 K/uL (0-0.2); Basophils % (auto) 0.2 %; Eosinophils # (auto) 0.62 K/uL (0-0.5); Eosinophils % (auto) 4.7 %; Hematocrit (blood only) 39.7 % (42-52); Hemoglobin 13.5 g/dL (14.0-18.0); Immature Granulocytes # (auto) 0.01 K/uL (0.00-0.02); Immature Granulocytes % (auto) 0.1 %; Lymphocytes # (auto) 0.67 K/uL (1.2-3.4); Lymphocytes % (auto) 5.1 %; Mean Corpuscular Hemoglobin 31.3 pg (25-34); Mean Corpuscular Volume 91.9 fL (80-100); Mean Platelet Volume 9.6 fL (7.4-10.4); Monocytes # (auto) 1.28 K/uL (0.11-0.59); Monocytes % (auto) 9.8 %; Neutrophils # (auto) 10.48 K/uL (1.4-6.5); Neutrophils % (auto) 80.1 %; Platelet Count 103 K/uL (130-400); RDW Standard Deviation 47.5 fL (36.4-46.3); Red Blood Count 4.32 M/uL (4.7-6.1); White Blood Count 13.08 K/uL (4.8-10.8)
[2021-06-19 07:31] LABS: BUN Creatinine Ratio 5.3 (10-20); Bilirubin Direct 0.2 mg/dl (0-0.2); Bilirubin,Total 0.9 mg/dl (0.2-1.0); Calcium 7.6 mg/dl (8.5-10.1); Creatinine Clr Calc Pharmacy 105.7 ml/min; Est GFR (Non-African American) 97.5 ml/min; Potassium 3.6 mmol/L (3.5-5.1); Total Protein 5.5 gm/dl (6.0-8.3)
[2021-06-19] MEDS: ENOXAPARIN INJ 40 MG/0.4 ML SYR SQ SCH (09:03)
[2021-06-19] MEDS: DULoxetine HCL 30 MG CAP PO SCH (09:03)
[2021-06-19] MEDS: THIAMINE HCL 100 MG TAB PO SCH (09:03)
[2021-06-19] MEDS: buprenorphine HCL 8 MG SUBL SL SCH (09:03)
[2021-06-19] MEDS: FOLIC ACID 1 MG TAB PO SCH (09:03)
[2021-06-19] MEDS: MULTIVITAMIN TAB PO SCH (09:03)
[2021-06-19] MEDS: POLYETHYLENE (MIRALAX) 17 GM PACK PO SCH (09:04)
--- NOTE | 2021-06-19 10:32 | Gastroenterology Progress Note ---
Date of Service June 19, 2021 Assessment & Plan (1) Acute pancreatitis: Plan: Acute uncomplicated pancreatitis. Likely ETOH pancreatitis. Plan: OP EUS in approx 6 wks. Recommend complete, permanent ETOH abstention. Long discussion with pt today. He seems very motivated to avoid alcohol. Will decrease IV fluid rate. Will advance diet to low fat, regular consistency. If tolerates lunch well, then reasonable to discharge today. Admission and Anticipated Discharge Date Admission Date: June 16, 2021 Supervising Physician Co-Signing Physician Notes I performed a history and physical examination of the patient today, including specifically on physical exam - soft abdomen. I have discussed the patient's management with the advanced practitioner. Please refer to the nurse practitioner's note for the documented findings and plan of care. Subjective 46 yr old male admitted on 06/[address], lipase consistent with acute, uncomplicated pancreatitis. Very mild bump in T Bili and AST, ALT (now back to normal). T BIli an dALk Phos have remained normal. Bile ducts clear on CT, US, MRCP. Tx with IV hydration. Has avoided narcotics. Abd pain, "much better today, just a little fullness and discomfort." Asking for DC today if possible. Review of Systems Review of Systems: ROS: Gen: + hot/chills, No fevers, no weight loss Eyes: No eye redness, or pain, no recent vision changes Resp: No SOB, no cough Cardio: No palpitations/irregular beats, no chest pain GI: Per HPI, otherwise (-) : Denies pain on urination Skin: No jaundice, itching or new rashes Physical Exam Constitutional: well developed, + thin and cooperative Eyes: PERRL, conjunctivae normal, anicteric sclerae ENMT: external ear and nose normal, oropharynx normal Neck: trachea midline, no thyromegaly Respiratory: normal respiratory effort, lungs clear to auscultation Cardiovascular: RRR, no murmur, no edema Gastrointestinal (Abdomen): Inspection/Auscultation: abdomen normal to inspection and + hypoactive bowel sounds; abdomen not distended and no abdominal edema Percussion/Palpation: + abdomen tender (upper abd. No signs of acute abdomen.), + guarding (some guarding) and abdomen soft; abdomen not rigid Skin: no rashes, warm and dry normal turgor Neurologic: PERRL, EOMI, accommodation nl, no face palsy, no dysarthria awake; not confused Psychiatric: A+Ox3, euthymic affect Lymphatic: no cervical or axillary lymphadenopathy Results & Data ([facility]) Vital Signs (Past 12 Hours) Vital Signs Temp Pulse Resp BP Pulse Ox 06/19/21 07:49 37.0 C 95 H 17 139/85 97 06/18/21 22:52 37.4 C 97 H 18 141/84 H 94 Laboratory Results wbc 13, Hb 13, Hct 39, Plts 103, Na 134, K 3.6, Cl 103, CO2 27, BUN 5, Cr 0.94, glucose 92. T Bili 0.9, C Bili 0.2, AST 22, ALT 12, Alk Phos 40. Diagnostic Findings MRCP 06/19/21: 1. Normal common bile duct, intrahepatic biliary duct radicles and pancreatic duct. No evidence for choledocholithiasis. 2. Acute pancreatitis with peripancreatic fluid and mild abdominal ascites. 3. Distention of the gallbladder. GB US 06/16/21: . Edematous pancreas consistent with the patient's known history of acute pancreatitis. 2. Trace perihepatic ascites. 3. Normal gallbladder. No gallstones. CTAP w IV 06/16/21: 1. Findings are consistent with acute pancreatitis. Correlate with clinical findings and serum amylase/lipase levels. 2. The gland enhances throughout and there is no organized peripancreatic fluid collection. 3. Hepatomegaly. 4. Small volume abdominopelvic ascites. 5. Wall thickening and edema of the duodenum is likely related to adjacent pancreatitis. (1) Acute pancreatitis Acute pancreatitis complication: no infection or necrosis Pancreatitis type: unspecified pancreatitis type Qualified Code(s): K85.90 - Acute pancreatitis without necrosis or infection, unspecified
--- NOTE | 2021-06-19 15:52 | Discharge Summary ---
Date of Service June 19, 2021 Admission HPI Per Admitting Provider History obtained from patient and records. Medical history significant for history alcoholic pancreatitis as per patient, GERD, anxiety/mood disorder, hx HLA-B27 spondyloarthropathy as per records, chronic pain on Suboxone. Last night, patient noted sharp upper abdominal pain after consuming a pizza. Pain radiating to the back causing him to be short of breath. No fever, no chills. Pain reminiscent of episode of alcoholic pancreatitis decades ago. Patient denies inordinate consumption of alcohol. Patient consulted ER for evaluation. Medical History as above Surgical History : Hernia repair, shoulder surgeries Family History : Breast cancer, heart disease, melanoma, rheumatoid arthritis Personal/Social history : Non-smoker, drinking can be heavy from time to time as per patient, paint work Admission Exam Per Admitting Provider GENERAL: uncomfortable, no respiratory distress SKIN: Normal color, warm HEENT: [place] palpebral conjunctivae, no ptosis, dry buccal mucosa NECK : Supple, no tenderness CHEST : CTA, no tenderness HEART : RRR, no obvious murmurs ABDOMEN: Some distention, epigastric tenderness EXTREMITIES : No LE swelling/tenderness, no other conspicuous deformities noted NEUROLOGIC : Coherent, no facial asymmetry, no other gross focality Principal Diagnosis Acute pancreatitis 2/2 alcohol Discharge Exam Gen: WD/WN, NAD, sitting at side of bed, appears uncomfortable, A&Ox3 HEENT: Normocephalic, atraumatic, conjunctivae moist, sclerae anicteric, mucous membranes moist Lung: Clear to Auscultation bilaterally, no wheezes/rales/rhonchi Heart: Regular rate, regular rhythm, no murmurs, rubs, or gallops Abdomen: Soft, mild TTP of LLQ lower abdomen, +BS x 4 Extremities: no edema Skin: Warm, no rash Discharge Data Allergies Allergy/AdvReac Type Severity Reaction Status Date / Time trazodone AdvReac Unknown prolonged Verified 06/16/21 17:32 erection Consultations 06/16/21 19:44 ED Decision to Admit Stat 06/16/21 23:56 Consult Gastroenterology Routine Ordered Studies 06/16/21 17:42 CT abd pelvis IV con only Stat 06/16/21 22:57 US gallbladder Urgent 06/17/21 08:32 MR MRCP Stat Hospital Course (1) Acute pancreatitis: This is a 46yo M with a PMH of alcoholic pancreatitis as per patient, GERD, anxiety/mood disorder, hx HLA-B27 spondyloarthropathy as per records, chronic pain on Suboxone who presents with recurrent alcoholic pancreatitis. CT abd/pelvis with findings are consistent with acute pancreatitis. MRCP with normal common bile duct, intrahepatic biliary duct radicles and pancreatic duct. No evidence for choledocholithiasis. Acute pancreatitis with peripancreatic fluid and mild abdominal ascites. No overt signs of alcohol withdrawal. Recommended complete, permanent ETOH abstention. Advanced to low fat diet without issue. OP EUS in approx 6 weeks with GI. Patient hemodynamically stable at time of discharge. Total Time Total Time Spent Total Time Spent (In Minutes): 40 Discharge Plan Discharge Items Patient Disposition: Home - Self-Care Reason For Visit: PANCREATITIS Discharge Diagnosis: acute pancreatitis Condition on Discharge: Fair Activity: Resume your previous activity Non-emergency contact: Primary Care Provider Call non-emergency contact if: you have any medication questions, your symptoms worsen, your pain is concerning for you and you have a fever Follow-up/Referrals: Alberto Lizama MD [Primary Care Provider] - 06/23/21 11:00 am (Date & Time 06/23/2021 11:00 AM Provider ELSIE Coelho [facility] ) Diet: Regular and Low Fat Addtl Attending Provider Instructions: You were admitted for acute pancreatitis. Symptoms have resolved with IV fluids and bowel rest. Recommend complete, permanent abstaining from alcohol. Continue with low fat regular diet as tolerated. Tylenol as needed for pain control (do not exceed 3,000mg in 24 hrs) MEDICATION CHANGES: None; continue home medications RECOMMENDATIONS FOR FOLLOW-UP: Hospital follow up appointment with ELSIE Coelho on 06/23/2021 11:00 AM Outpatient EUS in approximately 6 weeks with GI OTHER INSTRUCTIONS: Seek medical attention if you have: * temperature above 101 * chest pain or trouble breathing * abdominal pain, nausea, vomiting * diarrhea, dark stools or bloody stools * any unanswered questions or concerns Call 911 if symptoms are severe. Please take good care of yourself. Call if you have any questions or problems. You can reach a [facility] hospitalist on duty at [facility] 24 hours a day by calling [phone]. Chanelle Ortega PA-C [facility] Hospitalist Pending Studies at Discharge: No Stand-Alone Forms: My [facility], Smoking Cessation Medications and DC Order Prescriptions: Continued mirtazapine 30 mg tablet 15 mg PO HS RF: 0 testosterone cypionate 200 mg/mL oil 300 mg IM .EVERY 7 DAYS RF: 0 clonazepam 0.5 mg tablet 0.5 mg PO HS RF: 0 buprenorphine HCl 8 mg tablet, sublingual 8 mg SUBLINGUAL BID RF: 0 duloxetine 30 mg capsule,delayed release(DR/EC) 30 mg PO QAM RF: 0 Discharge Orders: Discharge Order (Routine); Ordered 06/19/21 Ordered By: Chanelle Wilson/Other Patient Handouts: Understanding Pancreatitis Admission Data Admit Date/Time: 06/16/21 23:00 Attending Provider: Cain Murphy Admit Provider: Teddy Dickinson Primary Care Provider: Alberto Lizama Other Providers: Carissa Ross ; Kaci Bright ; Guillermina Ballard ; Siobhan Quigley ; Jaquan Vann ; Lena Ramirez ; Jabier Morgan ; Guru Lauren ; Parris Carreon ; Jill Christine ; Peg Norris ; Liseth Shaw ; Kelly Haque ; Chanelle Ortega Other Interventions: Discharge Summary Assessment (RN) Last Done: 06/19/21 15:19 Supervising Physician Co-Signing Physician Notes Attending Addendum: care coordinated with CELESTE Chanelle Ortega please refer to her notes for full details, I agree with her notes patient seen and examined, records reviewed by myself as well on exam, patient seen sitting up in bed, not in distress Appears to be better Reports abdominal pain is significantly improved Tolerating clear liquids well Diet advanced to soft, tolerated well per CELESTE Chanelle Ortega no other symptoms VS noted and reviewed oriented x3, not in distress, speaks in sentences with no effort nor accessory muscle use normal rate, regular rhythm, no murmurs clear breath sounds bilaterally non distended, soft, nontender no bipedal edema, erythema, warmth no neuro deficits All labs noted and reviewed ASSESSMENT AND PLAN Acute pancreatitis likely related to alcohol intake Clinically improved, lipase level also improving Tolerated soft diet well Discharge to home Follow-up with GI closely for outpatient EUS other diagnoses and plan of care as per CELESTE Ortega's notes Cain Murphy MD
== END 2021-06-19 15:56 | disposition home or self-care (01) | DRG 439 ==
LOC: ED 16:58 → 3N 23:00